=== PATIENT | female | born 1990 | race Caucasian/White ===

== ENCOUNTER 2017-11-07 00:29 | Inpatient (IN) | payer OTHER ==
[2017-11-07 01:30] LABS: ADD MAN DIFF? NO
[2017-11-07] MEDS ORDERED: OXYTOCIN 30 UNITS/LR 500 ML IV ×2 (01:30→11:30)
[2017-11-07] MEDS ORDERED: METHYLERGONOVINE 0.2 MG INJ IM ×2 (01:30→11:30)
[2017-11-07] MEDS ORDERED: BUTORPHANOL 2 MG INJ IV (01:30)
[2017-11-07] MEDS ORDERED: CARBOPROST 250 MCG INJ IM ×2 (01:30→11:30)
[2017-11-07] MEDS ORDERED: LIDOCAINE 1% (MPF) 30 ML INJ INJ (01:30)
[2017-11-07] MEDS ORDERED: IBUPROFEN 600 MG TAB PO (01:30)
[2017-11-07 01:34] LABS: WHITE BLOOD COUNT 6.2 10^3/ul (4.8-10.8)
[2017-11-07 01:34] LABS: BASOPHILS % 0.3 % (0.0-2.0); EOSINOPHILS # 0.1 10^3/ul (0.0-0.5); EOSINOPHILS % 1.5 % (0.0-7.0); HEMATOCRIT 32.1 % (37.0-47.0); HEMOGLOBIN 10.6 g/dl (12.0-16.0); LYMPHOCYTES % 32.4 % (15.0-51.0); MEAN CORPUSCULAR HEMOGLOBIN 29.4 pg (29.0-33.0); MEAN CORPUSCULAR VOLUME 88.9 fl (82.0-101.0); MONOCYTE # 0.7 10^3/ul (0.3-0.9); NEUTROPHIL # 3.3 10^3/ul (1.6-7.5); NEUTROPHILS % 53.5 % (39.0-77.0); PLATELET COUNT 158 10^3/UL (140-415); RED BLOOD COUNT 3.61 10^6/ul (4.20-5.40)
[2017-11-07] MEDS: LACTATED RINGER'S 1,000 ML IV (01:37)
[2017-11-07] MEDS: LACTATED RINGER'S 1,000 ML IV* ×2 (02:08→11:29)
[2017-11-07 02:12] LABS: INR 0.99; PROTIME 13.2 Sec (11.9-14.9)
[2017-11-07 02:13] LABS: PARTIAL THROMBOPLASTIN TIME 27.1 Sec (23.0-35.0)
[2017-11-07] MEDS ORDERED: FENTAnyl 2MCG/ML-ROPIV 0.2% 100 ML (02:35)
[2017-11-07] MEDS: AMPICILLIN 2 GM/NS (PMX) 100 ML IV (02:55)
[2017-11-07 03:13] LABS: HEPATITIS B SURFACE ANTIGEN NEGATIVE (NEGATIVE)
[2017-11-07] MEDS ORDERED: NALOXONE (0.4 MG/ML) INJ IV (03:30)
[2017-11-07] MEDS ORDERED: ONDANSETRON 4 MG INJ IV ×2 (03:30→11:30)
[2017-11-07] MEDS ORDERED: FENTAnyl 2MCG/ML-ROPIV 0.2% 100 ML BAG EPI (03:30)
[2017-11-07] MEDS ORDERED: DIPHENHYDRAMINE 50 MG INJ IV ×2 (03:30→11:30)
[2017-11-07] MEDS ORDERED: AMPICILLIN 1 GM/NS (PMX) 50 ML IV (06:00)
[2017-11-07] MEDS: AMPICILLIN 1 GM/NS (PMX) 50 ML IV (06:59)
[2017-11-07] MEDS: MISOPROSTOL 200 MCG TAB PR (09:49)
[2017-11-07] MEDS: OXYTOCIN 30 UNITS/LR 500 ML IV ×2 (10:17→10:18)
[2017-11-07] MEDS: DEXTROSE 5%-LR 1,000 ML IV (11:29)
[2017-11-07] MEDS ORDERED: SENNA/DOCUSATE NA (8.6MG/50MG) TAB PO (11:30)
[2017-11-07] MEDS ORDERED: DIBUCAINE 1% 30 GM OINT TOP (11:30)
[2017-11-07] MEDS ORDERED: MISOPROSTOL 200 MCG TAB PR (11:30)
[2017-11-07] MEDS ORDERED: ZOLPIDEM 5 MG TAB PO (11:30)
[2017-11-07] MEDS ORDERED: ACETAMINOPHEN 325 MG TAB PO (11:30)
[2017-11-07] MEDS ORDERED: OXYCODONE/ASPIRIN (4.88/325) TAB PO (11:30)
[2017-11-07] MEDS: BENZOCAINE 20% 56 ML SPRAY TOP (14:36)
[2017-11-07] MEDS: WITCH HAZEL/GLYCERIN PAD PR (14:36)
[2017-11-07] MEDS: IBUPROFEN 600 MG TAB PO ×3 (14:36→23:39)
[2017-11-07] MEDS: LANOLIN 7 GM TUBE TOP (14:37)
[2017-11-07 15:04] LABS: RAPID PLASMA REAGIN NONREACTIVE (NR)
[2017-11-08] MEDS: LACTATED RINGER'S 1,000 ML IV* (00:38)
[2017-11-08] MEDS: DEXTROSE 5%-LR 1,000 ML IV (00:38)
[2017-11-08] MEDS: IBUPROFEN 600 MG TAB PO ×4 (06:07→23:51)
[2017-11-08 06:38] LABS: ADD MAN DIFF? NO
[2017-11-08 06:40] LABS: ABNORMAL IP MESSAGE 1; BASOPHILS % 0.2 % (0.0-2.0); EOSINOPHILS # 0.1 10^3/ul (0.0-0.5); EOSINOPHILS % 1.6 % (0.0-7.0); HEMATOCRIT 29.6 % (37.0-47.0); HEMOGLOBIN 9.7 g/dl (12.0-16.0); LYMPHOCYTES % 24.7 % (15.0-51.0); MEAN CORPUSCULAR HEMOGLOBIN 29.2 pg (29.0-33.0); MEAN CORPUSCULAR HGB CONC 32.8 g/dl (32.0-37.0); MEAN CORPUSCULAR VOLUME 89.2 fl (82.0-101.0); MEAN PLATELET VOLUME 13.7 fl (7.4-10.4); MONOCYTE # 0.8 10^3/ul (0.3-0.9); MONOCYTES % 9.2 % (0.0-11.0); NEUTROPHIL # 5.2 10^3/ul (1.6-7.5); NEUTROPHILS % 63.7 % (39.0-77.0); PLATELET COUNT 129 10^3/UL (140-415); RED BLOOD COUNT 3.32 10^6/ul (4.20-5.40); RED CELL DISTRIBUTION WIDTH 13.2 % (11.5-14.5)
[2017-11-08 06:40] LABS: WHITE BLOOD COUNT 8.2 10^3/ul (4.8-10.8)
[2017-11-08 06:47] LABS: POSITIVE DIFF @See below
[2017-11-09] MEDS: IBUPROFEN 600 MG TAB PO ×2 (05:34→12:00)
[2017-11-09] MEDS: MEASLES,MUMPS,RUBELLA VACCINE INJ SC* (09:00)
[2017-11-09] MEDS: DIPHTH/TET/ACEL PERTUSS (ADULT) 0.5 ML VIAL IM* (09:00)
== END 2017-11-09 15:39 | disposition home or self-care (01) | DRG 807 ==
LOC: OBT 00:29 → L-D 00:31 → OBT 00:55 → L-D 00:55 → PP1 12:06
PROVIDERS: Obstetrics & Gynecology
PROC: 10E0XZZ Delivery of Products of Conception, External Approach (ICD-10-PCS; principal; 2017-11-07)
PROC: 0HQ9XZZ Repair Perineum Skin, External Approach (ICD-10-PCS; 2017-11-07)
DX: O69.81X0 Labor and delivery complicated by cord around neck, without compression, not applicable or unspecified (principal); Z37.0 Single live birth; O70.0 First degree perineal laceration during delivery; O99.824 Streptococcus B carrier state complicating childbirth; Z3A.40 40 weeks gestation of pregnancy
CPT/HCPCS: 62319; 85025; 85610; 85730; 86592; 86850; 86900; 86901; 87340; 90715